=== PATIENT | female | born 1955 | race Caucasian/White ===

== ENCOUNTER 2017-09-11 22:31 | Inpatient (IN) | payer BC, OTHER ==
[~2017-09-11] VITALS: Ht 166.4 cm; Wt 81.0 kg
[~2017-09-11 22:31] MED LIST: BIOTCAP PO; CARA1SUS3 PO; CYCL10TA PO; HUMA100I SC; LEVO100T5 PO; PANT40TA3 PO; VALA500 PO; VENL50TA PO; VITA100T15 PO; insulin pump
[2017-09-11 22:43] VITALS: BP 130/64; PULSE 77; RESP 16; TEMP 98.8; O2SAT 97
[2017-09-12] VITALS (9 sets, daily range): BP systolic 110–142; BP diastolic 59–75; PULSE 54–99; RESP 16–19; TEMP 97.6–98.6; O2SAT 93–99
--- NOTE | 2017-09-12 00:55 | PD ---
HPI Chief Complaint: Neuro Symptoms/ Deficits Time Seen by Provider: 00:41 Travel History International Travel<30 days: No Contact w/Intl Traveler<30days: No Traveled to known affect area: No History of Present Illness HPI The patient is a [id number] female who presents to the emergency department for left facial droop, left-sided facial numbness, and left leg numbness which resolved. The patient's initial symptoms started on Wednesday with left facial numbness, left facial droop, difficulty closing her left eye, and numbness and tingling of the left leg. The numbness in tingling of the left leg has resolved, however, she continues have a left facial droop and difficulty closing the left eye. She denies any difficulty with movement of the forehead. She does have a history of type 1 diabetes with insulin pump, does not know her current settings. She denies any history of CVA, TIA, or Kee 's palsy. She denies any known history of hypertension, hyperlipidemia, or tobacco use. She does have a familial history of TIA/CVA. Symptoms are moderate. PFSH Past Medical History Anxiety: Yes Depression: Yes Cancer: No Cardiovascular Problems: No Diabetes: Yes (TYPE 1) Patient Takes Glucophage: No Diminished Hearing: No Endocrine: Yes (INSULIN PUMP) Gastrointestinal Disorders: Yes (reflux) GERD: Yes Genitourinary: No Hepatitis: No Hiatal Hernia: No Musculoskeletal: Yes (back and neck problems) Neurologic: No Psychiatric: Yes (bi-polar with manic depression) Reproductive: No Respiratory: No Integumentary: Yes (herpes) Thyroid Disease: Yes Menopausal: Yes Ectopic : Yes Dilation and Curettage (D&C): Yes Past Surgical History AICD: No Body Medical Devices: hardware lower jaw Gynecologic Surgery: Yes (total hysterectomy, laparoscopies) Hysterectomy: Yes Joint Replacement: No Oral Surgery: Yes (lower mandible fracture repair) Pacemaker: No Social History Alcohol Use: No Tobacco Use: No Substance Use: No Allergies-Medications (Allergen,Severity, Reaction): Coded Allergies: Sulfa (Sulfonamide Antibiotics) (Unverified Allergy, Severe, hives, ) penicillin G (Unverified Allergy, Severe, Anaphylaxis, 09/12/17) pt states it wasn't anaphylaxis but lips swelled and itched Reported Meds & Prescriptions Reported Meds & Active Scripts Active Carafate Liq (Sucralfate) 1 Gm/10 Ml Susp 1 Gm PO QID on empty stomach Levothyroxine (Levothyroxine Sodium) 100 Mcg Tab 100 Mcg PO DAILY Effexor (Venlafaxine HCl) 50 Mg Tab 50 Mg PO DAILY Pantoprazole (Pantoprazole Sodium) 40 Mg Tab 40 Mg PO DAILY Reported [insulin pump] Review of Systems Except as stated in HPI: all other systems reviewed are Neg HENT: No: Headaches, Lightheadedness Cardiovascular: No: Chest Pain or Discomfort Respiratory: No: Shortness of Breath Gastrointestinal: No: Nausea, Vomiting, Abdominal Pain Musculoskeletal: No: Weakness Neurologic: Positive: Focal Abnormalities, Paresthesia, Sensory Disturbance, No : Headache, Change in Mentation, Slurred Speech Psychiatric: No: Substance Abuse Physical Exam Narrative GENERAL: Awake, alert, pleasant [id number] female who appears her stated age is in no acute respiratory distress. SKIN: Focused skin assessment warm/dry. HEAD: Atraumatic. Normocephalic. EYES: Pupils equal and round. No scleral icterus. No injection or drainage. EOMs are intact. Patient is able to see fingers at a distance of 2 feet without difficulty. Decreased strength with closing the left eyelid. ENT: No nasal bleeding or discharge. Mucous membranes pink and moist. NECK: Trachea midline. No JVD. CARDIOVASCULAR: Regular rate and rhythm. No murmur appreciated. RESPIRATORY: No accessory muscle use. Clear to auscultation. Breath sounds equal bilaterally. GASTROINTESTINAL: Abdomen soft, non-tender, nondistended. No rebound tenderness. MUSCULOSKELETAL: No obvious deformities. No clubbing. No cyanosis. No edema. NEUROLOGICAL: Awake and alert. Left facial droop noted. Difficulty closing the left eye lid. However, patient is able to wrinkle her forehead and it is symmetric. Decreased sensation over the V2 and V3 distribution of the face. No drift of the arms or legs. Sensation is symmetric on the arms and legs bilaterally to soft touch. Finger to nose is normal. Rhlg-xg-[id number] is normal. No dysarthria noted. Oriented 4. PSYCHIATRIC: Appropriate mood and affect; insight and judgment normal. Data Data Last Documented VS Vital Signs Date Time Temp Pulse Resp B/P (MAP) Pulse Ox O2 Delivery O2 Flow Rate FiO2 09/12/17 00:56 72 16 142/75 (97) 96 3/24/18 22:43 98.8 Room Air Orders Orders Electrocardiogram (09/12/17 00:50) Prothrombin Time / Inr (Pt) (09/12/17 00:50) Act Partial Throm Time (Ptt) (09/12/17 00:50) Complete Blood Count With Diff (09/12/17 00:50) Comprehensive Metabolic Panel (09/12/17 00:50) Creatine Kinase (Cpk) (09/12/17 00:50) Troponin I (09/12/17 00:50) Urinalysis - C+S If Indicated (09/12/17 00:50) Ct Brain W/O Iv Contrast(Rout) (09/12/17 00:50) Ecg Monitoring (09/12/17 00:50) Iv Access Insert/Monitor (09/12/17 00:50) Oximetry (09/12/17 00:50) Sodium Chloride 0.9% Flush (Ns Flush) (09/12/17 01:00) Aspirin Chew (Aspirin Chew) (09/12/17 02:45) Admit Order (Ed Use Only) (09/12/17 03:17) Labs Laboratory Tests Test 09/12/17 01:05 White Blood Count 6.5 TH/MM3 Red Blood Count 4.17 MIL/MM3 Hemoglobin 13.2 GM/DL Hematocrit 37.1 % Mean Corpuscular Volume 89.0 FL Mean Corpuscular Hemoglobin 31.6 PG Mean Corpuscular Hemoglobin Concent 35.5 % Red Cell Distribution Width 13.8 % Platelet Count 111 TH/MM3 Mean Platelet Volume 8.9 FL Neutrophils (%) (Auto) 60.4 % Lymphocytes (%) (Auto) 29.9 % Monocytes (%) (Auto) 7.1 % Eosinophils (%) (Auto) 1.8 % Basophils (%) (Auto) 0.8 % Neutrophils # (Auto) 3.9 TH/MM3 Lymphocytes # (Auto) 1.9 TH/MM3 Monocytes # (Auto) 0.5 TH/MM3 Eosinophils # (Auto) 0.1 TH/MM3 Basophils # (Auto) 0.1 TH/MM3 CBC Comment AUTO DIFF Prothrombin Time 10.1 SEC Prothromb Time International Ratio 1.0 RATIO Activated Partial Thromboplast Time 25.3 SEC Blood Urea Nitrogen 17 MG/DL Creatinine 0.79 MG/DL Random Glucose 257 MG/DL Total Protein 7.1 GM/DL Albumin 3.3 GM/DL Calcium Level 8.5 MG/DL Alkaline Phosphatase 94 U/L Aspartate Amino Transf (AST/SGOT) 15 U/L Alanine Aminotransferase (ALT/SGPT) 13 U/L Total Bilirubin 0.5 MG/DL Sodium Level 138 MEQ/L Potassium Level 4.1 MEQ/L Chloride Level 100 MEQ/L Carbon Dioxide Level 33.9 MEQ/L Anion Gap 4 MEQ/L Estimat Glomerular Filtration Rate 74 ML/MIN Total Creatine Kinase 76 U/L Troponin I LESS THAN 0.02 NG/ML MDM Medical Decision Making Medical Screen Exam Complete: Yes Emergency Medical Condition: Yes Medical Record Reviewed: Yes Interpretation(s) CT the brain reveals negative noncontrast head CT Laboratory Tests Test 09/12/17 01:05 White Blood Count 6.5 TH/MM3 Red Blood Count 4.17 MIL/MM3 Hemoglobin 13.2 GM/DL Hematocrit 37.1 % Mean Corpuscular Volume 89.0 FL Mean Corpuscular Hemoglobin 31.6 PG Mean Corpuscular Hemoglobin Concent 35.5 % Red Cell Distribution Width 13.8 % Platelet Count 111 TH/MM3 Mean Platelet Volume 8.9 FL Neutrophils (%) (Auto) 60.4 % Lymphocytes (%) (Auto) 29.9 % Monocytes (%) (Auto) 7.1 % Eosinophils (%) (Auto) 1.8 % Basophils (%) (Auto) 0.8 % Neutrophils # (Auto) 3.9 TH/MM3 Lymphocytes # (Auto) 1.9 TH/MM3 Monocytes # (Auto) 0.5 TH/MM3 Eosinophils # (Auto) 0.1 TH/MM3 Basophils # (Auto) 0.1 TH/MM3 CBC Comment AUTO DIFF Prothrombin Time 10.1 SEC Prothromb Time International Ratio 1.0 RATIO Activated Partial Thromboplast Time 25.3 SEC Blood Urea Nitrogen 17 MG/DL Creatinine 0.79 MG/DL Random Glucose 257 MG/DL Total Protein 7.1 GM/DL Albumin 3.3 GM/DL Calcium Level 8.5 MG/DL Alkaline Phosphatase 94 U/L Aspartate Amino Transf (AST/SGOT) 15 U/L Alanine Aminotransferase (ALT/SGPT) 13 U/L Total Bilirubin 0.5 MG/DL Sodium Level 138 MEQ/L Potassium Level 4.1 MEQ/L Chloride Level 100 MEQ/L Carbon Dioxide Level 33.9 MEQ/L Anion Gap 4 MEQ/L Estimat Glomerular Filtration Rate 74 ML/MIN Total Creatine Kinase 76 U/L Troponin I LESS THAN 0.02 NG/ML EKG reveals normal sinus rhythm with a rate of 66. No ischemic changes or ectopy noted. Differential Diagnosis Differential diagnosis includes CVA, TIA, to cranial hemorrhage, Kee's palsy, Kee's palsy variant, complicated migraine. Narrative Course IV was established, labs are drawn and sent, and the patient was placed on cardiac telemetry monitoring and continuous pulse oximetry monitoring. The patient's differential includes CVA versus Kee's palsy, however, she is able to wrinkle her forehead symmetrically bilaterally and she initially had numbness and tingling of the left leg, I'm inclined to believe this may be CVA/ TIA. Therefore, CT of the brain stat was obtained. CT of the brain is negative. Labs are unremarkable. The patient may have atypical Kee's palsy, however, she can wrinkle her forehead bilaterally versus CVA. She did have numbness and tingling of the left leg initially which has resolved. Therefore, the patient was administered aspirin after CT of brain was negative, will be a 23 hour observation and may benefit from evaluation by neurology and possible MRI. Patient agrees with plan of care and disposition. Physician Communication Physician Communication [facility] were paged for 23 hour observation. I discussed the patient with Dr. Lakhani who agrees with admission. Diagnosis Primary Impression: CVA (cerebral vascular accident) Qualified Codes: I63.9 - Cerebral infarction, unspecified Admitting Information Admitting Physician Requests: Admit Condition: Stable Gene Hunter MD Sep 12, 2017 00:55
[2017-09-12] MEDS ORDERED: SODIUM CHLORIDE 0.9% FLUSH 10 ML FLUSH IVF PRN (01:00)
--- NOTE | 2017-09-12 01:54 | RADRPT ---
EXAM DATE/TIME: 09/12/2017 01:15 [facility] COMPARISON: No previous studies available for comparison. INDICATIONS : Left facial paralysis. RADIATION DOSE: 56.35 CTDIvol (mGy) MEDICAL HISTORY : Unable to obtain. SURGICAL HISTORY : Unable to obtain. ENCOUNTER: Initial ACUITY: 1 day PAIN SCALE: 0/10 LOCATION: cranial TECHNIQUE: Multiple contiguous axial images were obtained of the head. Using automated exposure control and adj ustment of the mA and/or kV according to patient size, radiation dose was kept as low as reasonably a chievable to obtain optimal diagnostic quality images. DICOM format image data is available electro nically for review and comparison. FINDINGS: CEREBRUM: The ventricles are normal for age. No evidence of midline shift, mass lesion, hemorrhage or acute in farction. No extra-axial fluid collections are seen. POSTERIOR FOSSA: The cerebellum and brainstem are intact. The 4th ventricle is midline. The cerebellopontine angle i s unremarkable. EXTRACRANIAL: The visualized portion of the orbits is intact. SKULL: The calvaria is intact. No evidence of skull fracture. CONCLUSION: Negative noncontrast head CT Chadd Price MD on September 12, 2017 at 1:34 Board Certified Radiologist. This report was verified electronically.
[2017-09-12 02:23] LABS: ALBUMIN 3.3 GM/DL (3.4-5.0); ALKALINE PHOSPHATASE 94 U/L (45-117); ALT (GPT) 13 U/L (10-53); AST (GOT) 15 U/L (15-37); BICARBONATE 33.9 MEQ/L (21.0-32.0); BLOOD UREA NITROGEN 17 MG/DL (7-18); CALCIUM 8.5 MG/DL (8.5-10.1); CHLORIDE 100 MEQ/L (98-107); CREATININE 0.79 MG/DL (0.50-1.00); GLOMERULAR FILTRATION RATE 74 ML/MIN (>89); GLUCOSE,RANDOM 257 MG/DL (74-106); SODIUM (NA) 138 MEQ/L (136-145); TOTAL BILIRUBIN ADULT 0.5 MG/DL (0.2-1.0); TOTAL PROTEIN 7.1 GM/DL (6.4-8.2); TROPONIN I LESS THAN 0.02 NG/ML (0.02-0.05)
[2017-09-12 02:26] LABS: AUTOMATED NEUTROPHIL # 3.9 TH/MM3 (1.8-7.7); BASOPHIL # 0.1 TH/MM3 (0-0.2); BASOPHIL % 0.8 % (0.0-2.0); EOSINOPHIL # 0.1 TH/MM3 (0-0.4); EOSINOPHIL % 1.8 % (0.0-4.0); LYMPH % 29.9 % (9.0-44.0); LYMPHOCYTE # 1.9 TH/MM3 (1.0-4.8); MEAN CORPUSCULAR HEMOGLOBIN 31.6 PG (27.0-34.0); MEAN CORPUSCULAR HGB CONC 35.5 % (32.0-36.0); MEAN PLATELET VOLUME 8.9 FL (7.0-11.0); MONO % 7.1 % (0.0-8.0); MONOCYTE # 0.5 TH/MM3 (0-0.9); NEUT % 60.4 % (16.0-70.0); RED BLOOD COUNT 4.17 MIL/MM3 (4.00-5.30); RED CELL DISTRIBUTION WIDTH 13.8 % (11.6-17.2)
[2017-09-12 02:30] LABS: PROTHROMBIN TIME - PATIENT 10.1 SEC (9.8-11.6)
[2017-09-12] MEDS ORDERED: ASPIRIN 81 MG CHEW TAB CHEW ONE (02:45)
[2017-09-12] MEDS ORDERED: GLUCAGON 1 MG/ML VIAL OTHER PRN (03:30)
[2017-09-12] MEDS ORDERED: DEXTROSE 50% IN WATER 50 ML VIAL(D50) IV PUSH PRN (03:30)
[2017-09-12] MEDS ORDERED: SODIUM CHLORIDE 0.9% FLUSH 10 ML FLUSH IV FLUSH PRN (03:30)
[2017-09-12] MEDS ORDERED: ENALAPRILAT 1.25 MG/ML VIAL IV PUSH PRN (03:30)
[2017-09-12] MEDS ORDERED: ARTIFICIAL TEARS OPTH SOLN 15 ML BTL LEFT EYE PRN (04:00)
--- NOTE | 2017-09-12 04:13 | HHI.HP ---
[facility] Unknown Admission Diagnosis CVA, left facial droop, left leg numbness Diagnoses: (1) CVA (cerebral vascular accident) Diagnosis: Principal (2) Dehydration Diagnosis: Principal (3) DM (diabetes mellitus) Diagnosis: Principal Travel History International Travel<30 Days: No Contact w/Intl Traveler <30 Da: No Traveled to Known Affected Are: No History of Present Illness This is a 62-year-old female with a PMH of DM, Anxiety, Depression and Herpetic Neuralgia who presented to the ER with complaints of left-sided facial droop in addition to left-sided numbness and weakness. States left-sided weakness/ numbness started approx 2 days ago, but did not seek medical attention at that time. Today pt reports right leg pain typical of her previous herpetic neuralgia and took 5 tablets of Acyclovir w/ some improvement. Few hours later went to drink through a straw but wasn't able to, and noticed left facial droop at that time. Also notes she is unable to close left eye. States Daughter is a physician in another state who urged her to come to the ER. No h/o similar symptoms. No recent viral illness or sick contacts. On arrival, BP 130/64, HR 77, O2 sat 97% RA, Afebrile. CBC unremarkable except for platelets 111, previously 106 on 04/12/2014. Chemistry unremarkable except for GFR 74. Troponin negative. INR 1.0. CT Head with no acute findings. Review of Systems Except as stated in HPI: all other systems reviewed are Neg ROS: 14 point review of systems otherwise negative. Past Family Social History Past Medical History PMH: DM, Anxiety, Depression and Herpetic Neuralgia Past Surgical History PAST SURGICAL HISTORY: Jaw Surgery, Hysterectomy Allergies: Coded Allergies: Sulfa (Sulfonamide Antibiotics) (Unverified Allergy, Severe, hives, ) penicillin G (Unverified Allergy, Severe, Anaphylaxis, 09/12/17) pt states it wasn't anaphylaxis but lips swelled and itched Family History PAST FAMILY HISTORY: Reviewed. No h/o DM or CAD Social History PAST SOCIAL HISTORY: Negative for alcohol, tobacco or drugs. Physical Exam Vital Signs Vital Signs Date Time Temp Pulse Resp B/P (MAP) Pulse Ox O2 Delivery O2 Flow Rate FiO2 09/12/17 00:56 72 16 142/75 (97) 96 09/11/17 22:43 98.8 77 16 130/64 (86) 97 Room Air Physical Exam PE: GENERAL: Pleasant middle-aged white female in no acute distress. HEENT: PERRLA, EOMI. No scleral icterus or conjunctival pallor. Left-sided facial droop. Bandage over left eye, unable to close eye completely. CARDIOVASCULAR: Regular rate and rhythm. No obvious murmurs to auscultation. No chest tenderness to palpation. RESPIRATORY: No obvious rhonchi or wheezing. Clear to auscultation. Breath sounds equal bilaterally. GASTROINTESTINAL: Abdomen soft, non-tender, nondistended. BS normal. MUSCULOSKELETAL: Extremities without clubbing, cyanosis, or edema. No obvious deformities. NEUROLOGICAL: Awake, alert and oriented x4. No focal neurologic deficits. Moving both upper and lower extremities spontaneously. Laboratory Laboratory Tests Test 09/12/17 01:05 White Blood Count 6.5 Red Blood Count 4.17 Hemoglobin 13.2 Hematocrit 37.1 Mean Corpuscular Volume 89.0 Mean Corpuscular Hemoglobin 31.6 Mean Corpuscular Hemoglobin Concent 35.5 Red Cell Distribution Width 13.8 Platelet Count 111 Mean Platelet Volume 8.9 Neutrophils (%) (Auto) 60.4 Lymphocytes (%) (Auto) 29.9 Monocytes (%) (Auto) 7.1 Eosinophils (%) (Auto) 1.8 Basophils (%) (Auto) 0.8 Neutrophils # (Auto) 3.9 Lymphocytes # (Auto) 1.9 Monocytes # (Auto) 0.5 Eosinophils # (Auto) 0.1 Basophils # (Auto) 0.1 CBC Comment AUTO DIFF Prothrombin Time 10.1 Prothromb Time International Ratio 1.0 Activated Partial Thromboplast Time 25.3 Blood Urea Nitrogen 17 Creatinine 0.79 Random Glucose 257 Total Protein 7.1 Albumin 3.3 Calcium Level 8.5 Alkaline Phosphatase 94 Aspartate Amino Transf (AST/SGOT) 15 Alanine Aminotransferase (ALT/SGPT) 13 Total Bilirubin 0.5 Sodium Level 138 Potassium Level 4.1 Chloride Level 100 Carbon Dioxide Level 33.9 Anion Gap 4 Estimat Glomerular Filtration Rate 74 Total Creatine Kinase 76 Troponin I LESS THAN 0.02 Result Diagram: 09/12/1710409/12/17104 Caprini VTE Risk Assessment Caprini VTE Risk Assessment: No/Low Risk (score <= 1) Caprini Risk Assessment Model Point Value = 1 Point Value = 2 Point Value = 3 Point Value = 5 Age 41-60 Minor surgery BMI > 25 kg/m2 Swollen legs Varicose veins or History of unexplained or recurrent spontaneous Oral contraceptives or hormone replacement Sepsis (< 1 month) Serious lung disease, including pneumonia (< 1 month) Abnormal pulmonary function Acute myocardial infarction Congestive heart failure (< 1 month) History of inflammatory bowel disease Medical patient at bed rest Age 61-74 Arthroscopic surgery Major open surgery (> 45 min) Laparoscopic surgery (> 45 min) Malignancy Confined to bed (> 72 hours) Immobilizing plaster cast Central venous access Age >= 75 History of VTE Family history of VTE Factor V Leiden Prothrombin [id number] Lupus anticoagulant Anticardiolipin antibodies Elevated serum homocysteine Heparin-induced thrombocytopenia Other congenital or acquired thrombophilia Stroke (< 1 month) Elective arthroplasty Hip, pelvis, or leg fracture Acute spinal cord injury (< 1 month) Prophylaxis Regimen Total Risk Factor Score Risk Level Prophylaxis Regimen 0-1 Low Early ambulation 2 Moderate Order ONE of the following: *Sequential Compression Device (SCD) *Heparin 5000 units SQ BID 3-4 Higher Order ONE of the following medications: *Heparin 5000 units SQ TID *Enoxaparin/Lovenox 40 mg SQ daily (WT < 150 kg, CrCl > 30 mL/min) *Enoxaparin/Lovenox 30 mg SQ daily (WT < 150 kg, CrCl > 10-29 mL/min) *Enoxaparin/Lovenox 30 mg SQ BID (WT < 150 kg, CrCl > 30 mL/min) AND/OR *Sequential Compression Device (SCD) 5 or more Highest Order ONE of the following medications: *Heparin 5000 units SQ TID (Preferred with Epidurals) *Enoxaparin/Lovenox 40 mg SQ daily (WT < 150 kg, CrCl > 30 mL/min) *Enoxaparin/Lovenox 30 mg SQ daily (WT < 150 kg, CrCl > 10-29 mL/min) *Enoxaparin/Lovenox 30 mg SQ BID (WT < 150 kg, CrCl > 30 mL/min) AND *Sequential Compression Device (SCD) Assessment and Plan Problem List: (1) CVA (cerebral vascular accident) ICD Code: I63.9 - Cerebral infarction, unspecified Status: Acute (2) Dehydration ICD Code: E86.0 - Dehydration (3) DM (diabetes mellitus) ICD Code: E11.9 - Type 2 diabetes mellitus without complications Assessment and Plan A/P: 1. CVA: vs Kee's Palsy. Acute onset of left-sided numbness/weakness x2 days w/ left-facial droop today and difficulty closing left eye. CT Head w/ no acute findings, images reviewed by me. Concern for CVA in light of associated weakness/numbness of lower extremity and forehead sparing, admit for further evaluation. Telemetry, Neuro Checks, NPO, IVF, check MRI/MRA to eval for CVA, check Echo to eval for possible thromboembolic event. Artificial Tears prn. Consult Neurology for further eval/recommendations. ASA, Statin. Check Hgb A1c , Lipid Profile. PT/Speech for eval/tx. 2. Dehydration: GFR 74, IVF for hydration, check U/a, repeat labs in am. 3. DM: Has Insulin Pump, will turn off. Start Sliding Scale w/ Accu-Cheks. 4. DVT Prophylaxis: SCD/Teds. 5. Social work for d/c planning as needed. 6. Case discussed w/ ER physician at length, labs/records/imaging reviewed by me. Physician Certification 2 Midnight Certification Type: Admission for Inpatient Services Order for Inpatient Services The services are ordered in accordance with Medicare regulations or non- Medicare payer requirements, as applicable. In the case of services not specified as inpatient-only, they are appropriately provided as inpatient services in accordance with the 2-midnight benchmark. Estimated LOS (days): 2 days is the estimated time the patient will need to remain in the hospital, assuming treatment plan goals are met and no additional complications. Post-Hospital Plan: Not yet determined Problem Qualifiers (1) CVA (cerebral vascular accident): Qualified Codes: I63.9 - Cerebral infarction, unspecified Carolee Lakhani MD Sep 12, 2017 04:13
[2017-09-12 04:56] LABS: HEMOGLOBIN 12.6 GM/DL (11.6-15.3); WHITE BLOOD COUNT 5.4 TH/MM3 (4.0-11.0)
[2017-09-12 04:57] LABS: PLATELET COUNT 183 TH/MM3 (150-450)
[2017-09-12 05:12] LABS: BACTERIA, URINE RARE /hpf; BILIRUBIN, URINE NEG (NEG); BLOOD, URINE NEG (NEG); GLUCOSE,URINE 1000 mg/dL (NEG); KETONE, URINE NEG (NEG); NITRITE,URINE NEG (NEG); PH, URINE 7.5 (5.0-8.5); SQUAMOUS EPITHELIAL CELL URINE 2 /hpf (0-5); URINE COLOR LIGHT-YELLOW (YELLW/STRAW); URINE LEUKOCYTE ESTERASE NEG (NEG)
[2017-09-12] MEDS: SODIUM CHLOR 0.9% 1000 ML INJ 1,000 ML IV SCH (05:44)
[2017-09-12] MEDS: INSULIN ASPART SUPPLEMENTAL SCALE SQ SCH ×4 (08:00→20:37)
[2017-09-12] MEDS: ASPIRIN 81 MG CHEW TAB PO SCH (10:28)
--- NOTE | 2017-09-12 13:39 | MB ---
cc: Jj Farmer MD DATE: 09/12/2017 HISTORY OF PRESENT ILLNESS: She is a 62-year-old woman with a history of left facial weakness that evolved 2 days ago. She went to work and other people also noticed that during the following day, symptoms persisted and then she came to the hospital yesterday. History of diabetes and depression. History of some herpetic neuralgia that apparently affects her buttock region intermittently over the years. The patient felt somewhat funny with her left foot or leg yesterday, but it seemed to be a minor event. She has no history of stroke, TIAs, seizures. NEUROLOGIC EXAMINATION: Showed an alert, pleasant woman. Mentation normal. Ocular movements full. Pupils equal and reactive. Visual soria full. She has some mild peripheral left facial weakness with a mild Kee's phenomena. Tongue and palate moves well. Speech is minimally dysarthric. She has good strength with all 4 limbs. Pssydy-qe-grms testing normal, and reflexes were absent throughout. Plantar responses are flexor. IMAGING STUDIES: CT brain negative. 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 She admits some symptoms in her inner ear, but I did not see any edema, erythema or suggestion of shingles there. She is already scheduled for an MRI brain and suspect the study will be negative for any acute process and if so, she could be discharged home on baby aspirin and otherwise general medical care. Overall, the Kee's palsy appears to be relatively mild and suspect it will improve within the next few weeks. If there is any significant findings on the MRI, we will be happy to reevaluate the patient. Thank you for asking us to assist in her care. MD ANGELIA Nelson/ABY , 01:21 PM , 01:38 PM
--- NOTE | 2017-09-12 13:59 | RADRPT ---
EXAM DATE/TIME: 09/12/2017 13:28 [facility] COMPARISON: No previous studies available for comparison. INDICATIONS : CVA. MEDICAL HISTORY : Diabetes mellitus type 2. SURGICAL HISTORY : Hysterectomy. ENCOUNTER: Initial ACUITY: 1 day PAIN SCORE: 0/10 LOCATION: cranial TECHNIQUE: Multiplanar, multisequence MRI of the brain was performed without contrast. FINDINGS: CEREBRUM: The ventricles are normal for age. No evidence of midline shift, mass lesion, hemorrhage or acute in farction. No extraaxial fluid collections are seen. The pituitary gland and suprasellar cistern are normal in configuration. WHITE MATTER: No significant signal abnormalities are seen in the white matter. POSTERIOR FOSSA: The cerebellum and brainstem are intact. The 4th ventricle is midline. The cerebellopontine angle is unremarkable. The cerebellar tonsils are normal in position. DIFFUSION IMAGING: No focal areas of restricted diffusion are seen. No evidence of acute infarction. EXTRACRANIAL: The visualized portions of the orbits and paranasal sinuses are unremarkable. CONCLUSION: No acute disease. Victorino Whitman MD on September 12, 2017 at 13:55 Board Certified Radiologist. This report was verified electronically.
--- NOTE | 2017-09-12 14:04 | RADRPT ---
EXAM DATE/TIME: 09/12/2017 13:28 [facility] COMPARISON: CT BRAIN W/O CONTRAST, September 12, 2017, 1:15. MRI BRAIN W/O CONTRAST, September 12, 2017, 13:28. INDICATIONS : CVA. MEDICAL HISTORY : Diabetes mellitus type 2. SURGICAL HISTORY : Hysterectomy. ENCOUNTER: Initial ACUITY: 1 day PAIN SCORE: 0/10 LOCATION: cranial Please note a normal MRA of the brain does not entirely exclude the possibility of a small aneurysm, nor the possibility of distal intracranial vessel disease. TECHNIQUE: 3D time of flight MRA was performed. Source images, multiplanar STS MIP, and 3D volume MIP reconstru ctions were reviewed. FINDINGS: There is excellent visualization of the major intracranial arteries out to the second-order branch ve ssels. The right posterior cerebral artery arises from the right internal carotid artery. This is a normal variant. There is a questionable 3 mm area of minimal enhancement seen adjacent to the superio r aspect of the proximal M1 segment of the right middle cerebral artery. An aneurysm could have this appearance. There is no evidence for vessel truncation or stenosis, and no evidence for vascular malf ormation. CONCLUSION: 1. Questionable small aneurysm seen as an area of increased signal just superior to the proximal righ t middle cerebral artery. This area could be better delineated with a CTA of the head. 2. Normal variant of the right posterior cervical artery arising from the right internal carotid ubaldo ry. Victorino Whitman MD on September 12, 2017 at 13:56 Board Certified Radiologist. This report was verified electronically.
--- NOTE | 2017-09-12 19:39 | EKG ---
Date Performed: 09/12/2017 Time Performed: 01:03:24 PTAGE: 62 years EKG: Sinus rhythm Since the previous tracing, no significant change noted NORMAL ECG PREVIOUS TRACING : 04/12/2014 12.45 DOCTOR: Zulema Celestin Interpretating Date/Time 09/12/2017 19:38:30
[2017-09-12] MEDS: SODIUM CHLORIDE 0.9% FLUSH 10 ML FLUSH IV FLUSH SCH (21:00)
[2017-09-12] MEDS ORDERED: ATORVASTATIN 10 MG TAB PO SCH (21:00)
[2017-09-13] MEDS ORDERED: IBUPROFEN 400 MG TAB PO PRN (01:45)
[2017-09-13 03:10] VITALS: BP 105/56; PULSE 62; RESP 17; TEMP 97.9; O2SAT 94
[2017-09-13 03:20] LABS: AUTOMATED NEUTROPHIL # 5.2 TH/MM3 (1.8-7.7); BASOPHIL % 0.6 % (0.0-2.0); EOSINOPHIL # 0.1 TH/MM3 (0-0.4); EOSINOPHIL % 1.3 % (0.0-4.0); HEMATOCRIT 39.8 % (35.0-46.0); HEMOGLOBIN 13.7 GM/DL (11.6-15.3); LYMPH % 18.9 % (9.0-44.0); LYMPHOCYTE # 1.4 TH/MM3 (1.0-4.8); MEAN CELL VOLUME 87.9 FL (80.0-100.0); MEAN CORPUSCULAR HEMOGLOBIN 30.2 PG (27.0-34.0); MEAN CORPUSCULAR HGB CONC 34.3 % (32.0-36.0); MEAN PLATELET VOLUME 9.2 FL (7.0-11.0); MONO % 6.9 % (0.0-8.0); MONOCYTE # 0.5 TH/MM3 (0-0.9); NEUT % 72.3 % (16.0-70.0); RED BLOOD COUNT 4.53 MIL/MM3 (4.00-5.30); RED CELL DISTRIBUTION WIDTH 13.8 % (11.6-17.2); WHITE BLOOD COUNT 7.2 TH/MM3 (4.0-11.0)
[2017-09-13 03:41] LABS: ALBUMIN 3.2 GM/DL (3.4-5.0); ALT (GPT) 10 U/L (10-53); AST (GOT) 13 U/L (15-37); BICARBONATE 31.5 MEQ/L (21.0-32.0); BLOOD UREA NITROGEN 13 MG/DL (7-18); CALCIUM 8.5 MG/DL (8.5-10.1); CHLORIDE 105 MEQ/L (98-107); CHOLESTEROL 220 MG/DL (120-200); CREATININE 0.69 MG/DL (0.50-1.00); GLOMERULAR FILTRATION RATE 87 ML/MIN (>89); GLUCOSE,RANDOM 116 MG/DL (74-106); SODIUM (NA) 142 MEQ/L (136-145); TRIGLYCERIDES 74 MG/DL (42-150)
[2017-09-13 03:46] LABS: ALKALINE PHOSPHATASE 71 U/L (45-117); CHOLESTEROL/ HDL RATIO 2.98 RATIO; HDL CHOLESTEROL 73.7 MG/DL (40.0-60.0); LDL CHOLESTEROL 132 MG/DL (0-99); TOTAL BILIRUBIN ADULT 0.4 MG/DL (0.2-1.0); TOTAL PROTEIN 6.8 GM/DL (6.4-8.2)
[2017-09-13] MEDS: SODIUM CHLOR 0.9% 1000 ML INJ 1,000 ML IV SCH ×2 (07:59→10:28)
[2017-09-13 08:00] VITALS: BP 142/75; PULSE 74; RESP 18; TEMP 98.2; O2SAT 96
[2017-09-13] MEDS: INSULIN ASPART SUPPLEMENTAL SCALE SQ SCH ×3 (08:00→16:11)
[2017-09-13 08:23] LABS: PLATELET COUNT 198 TH/MM3 (150-450)
[2017-09-13 08:41] VITALS: O2SAT 95
[2017-09-13] MEDS: SODIUM CHLORIDE 0.9% FLUSH 10 ML FLUSH IV FLUSH SCH ×2 (09:00→10:25)
--- NOTE | 2017-09-13 09:00 | HHI.FPPN ---
Subjective Remarks Patient states she was unhappy last night because she has not been on her anti- depressant, is very tearful on interview. States she knew she would crash with the amount of insulin she received for a blood glucose of above 200. Wants to use her own insulin pump because she feels that the insulin here is different and made her blood sugar drop. Is otherwise stable, no other complaints. (Luiza Calle MD R1) Objective Vitals Vital Signs Date Time Temp Pulse Resp B/P (MAP) Pulse Ox O2 Delivery O2 Flow Rate FiO2 09/13/17 08:41 95 09/13/17 03:10 97.9 62 17 105/56 (72) 94 09/12/17 23:40 98.1 68 17 110/61 (77) 94 09/12/17 22:38 21 09/12/17 18:57 98.4 99 19 130/70 (90) 95 09/12/17 15:42 98.6 60 19 131/66 (87) 97 09/12/17 11:30 98.2 65 18 121/70 (87) 93 09/12/17 10:17 99 21 I/O 09/12/17 09/12/17 09/12/17 09/13/17 09/13/17 09/13/17 07:00 15:00 23:00 07:00 15:00 23:00 Intake Total 0 ml 0 ml 480 ml Output Total 650 ml Balance -650 ml 0 ml 480 ml Intake Oral 0 ml 0 ml 480 ml Output Urine Total 650 ml # Voids 2 4 # Bowel Movements 0 0 0 (Luiza Calle MD R1) Result Diagram: 09/13/17 0613 09/13/17 0234 Objective Remarks O. CONSTITUTIONAL/GEN: Tearful in room, laying quietly in bed. Freind at bedisde. EYES: conjunctiva normal, PERRLA, EOMI. ENT: Mouth and pharynx normal. NECK: thyroid midline, carotids symmetrical. LUNGS: clear A-P, respiratory effort is normal. CARDIOVASCULAR: RR without murmur or gallop. No significant edema. GI/ABD: soft without masses, without organomegaly. NEURO: No new focal deficits. Left sided facial weakness slightly improved since yesterday, patient states she is better able to close her left eye. 5/5 motor strength bilaterally. Reflexes 1+ in lower extremities. SKIN: color normal, no rashes noted. HEME/LYMPH: no bruising, petechia or significant adenopathy PSYCH/MENTAL STATUS: Alert and oriented x 3. Patient is tearful on exam. States she likes when things are explained to her. Has not been receiving her anti-depressant. (Luiza Calle MD R1) A/P Assessment and Plan Patient is a 62-year-old female with a PMH of DM, Anxiety, Depression and Herpetic Neuralgia admitted for left-sided facial droop in addition to left- sided numbness and weakness. Neurology consulted, patient underwent stroke work- up. MRA Started on IVF hydration and NPO for testing. PT/Speech consulted for evaluation. Discharge Planning D/C after CTA imaging of brain and neck (Luiza Calle MD R1) Attending Attestation Patient seen and examined. Case reviewed and discussed with the resident team. Agree with plan of care as discussed with me and documented in the resident note. Contrast studies showed no issues with the carotids and also no sign of aneurysm. Her exam is improved slightly with decrease facial droop and able to close her eye. 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 She did elect to take prednisone on dc. 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 Normal motor strength (2) Left-sided weakness ICD Codes: R53.1 - Weakness Status: Resolved Plan: Diff: stress response v migraine v TIA Patient had 5/5 strength today, slightly weak on yesterdays exam, but not to the extent there is acute concern. See above (3) Depression ICD Codes: F32.9 - Major depressive disorder, single episode, unspecified Plan: Con't venlafaxine 50 mg daily (4) Hypothyroidism ICD Codes: E03.9 - Hypothyroidism, unspecified Plan: Con't home levothyroxine 100 mcg daily (5) GERD (gastroesophageal reflux disease) ICD Codes: K21.9 - Gastro-esophageal reflux disease without esophagitis Plan: Con't pantoprazole (6) Herpes ICD Codes: B00.9 - Herpesviral infection, unspecified Plan: Takes acyclovir 400 BID for herpes outbreaks (7) DM (diabetes mellitus) ICD Codes: E11.9 - Type 2 diabetes mellitus without complications Plan: Con't insulin pump, allow patient to manage herself for today. Instructed she can call us if assistance needed (8) Dehydration ICD Codes: E86.0 - Dehydration Status: Resolved Plan: s/p IV hydration, improved (9) FEN Plan: Fluids: PO Electrolytes: prn Nutrition: diabetic diet DVT prophy: ASA 81 mg daily for now, SCDs, encourage patient to ambulate (Luiza Calle MD R1) Problem Qualifiers (1) DM (diabetes mellitus): Qualified Codes: E10.8 - Type 1 diabetes mellitus with unspecified complications Luiza Calle MD R1 Sep 13, 2017 09:00 Mercy Langley MD Sep 13, 2017 19:06
[2017-09-13] MEDS ORDERED: VENLAFAXINE HCL 25 MG TAB PO SCH (10:00)
[2017-09-13] MEDS: PANTOPRAZOLE SOD 40 MG DELAYED RELEASE TAB PO SCH ×2 (10:27→10:30)
[2017-09-13] MEDS: ASPIRIN 81 MG CHEW TAB PO SCH (10:27)
[2017-09-13] MEDS ORDERED: LEVOTHYROXINE SODIUM 100 MCG TAB PO SCH (11:00)
[2017-09-13] MEDS ORDERED: cloNIDine HCL 0.1 MG TAB PO PRN (11:00)
[2017-09-13 12:00] VITALS: BP 133/78; PULSE 78; RESP 17; TEMP 98.5; O2SAT 93
[2017-09-13] MEDS ORDERED: ACETIC ACID/HYDROCORTISONE OTIC SOLN 10 ML BTL LEFT EAR SCH (13:00)
[2017-09-13] MEDS ORDERED: ACYCLOVIR 200 MG CAP PO SCH (13:00)
[2017-09-13] MEDS ORDERED: IOHEXOL 350 MG/ML 10 ML VIAL (for RAD DIAG) IVCONTRAST ONE (14:14)
--- NOTE | 2017-09-13 15:04 | RADRPT ---
EXAM DATE/TIME: 09/13/2017 13:51 [facility] COMPARISON: No previous studies available for comparison. INDICATIONS : Left sided facial droop. IV CONTRAST: 95 cc Omnipaque 350 (iohexol) IV ; Cumulative dose for multiple exams. RADIATION DOSE: 28.01 CTDIvol (mGy) ; Combined studies MEDICAL HISTORY : Gastroesophageal reflux disease. Diabetes mellitus type 1. SURGICAL HISTORY : Hysterectomy. ENCOUNTER: Initial ACUITY: 1 day PAIN SCALE: 0/10 LOCATION: cranial TECHNIQUE: Volumetric scanning was performed using a multi-row detector CT scanner. The data was post processed with a variety of visualization algorithms including full volume maximum intensity projection, multi -planar sliding thin slab reformation, curved planar reformation, and surface rendering techniques. Using automated exposure control and adjustment of the mA and/or kV according to patient size, radiat ion dose was kept as low as reasonably achievable to obtain optimal diagnostic quality images. DICO M format image data is available electronically for review and comparison. FINDINGS: There is excellent visualization of the major intracranial arteries out to the second-order branch ve ssels. There is no evidence for aneurysm, vessel truncation or stenosis, and no evidence for vascula r malformation. The right posterior cerebral artery arises in fashion is a variant of normal. CONCLUSION: No acute [place] of [place] vascular findings. Victorino Munguia MD on September 13, 2017 at 14:57 Board Certified Radiologist. This report was verified electronically.
--- NOTE | 2017-09-13 15:06 | RADRPT ---
EXAM DATE/TIME: 09/13/2017 13:51 [facility] COMPARISON: No previous studies available for comparison. INDICATIONS : Left sided facial droop. IV CONTRAST: 95 cc Omnipaque 350 (iohexol) IV ; Cumulative dose for multiple exams. RADIATION DOSE: 28.01 CTDIvol (mGy) ; Combined studies MEDICAL HISTORY : Gastroesophageal reflux disease. Diabetes mellitus type 1. SURGICAL HISTORY : Hysterectomy. ENCOUNTER: Initial ACUITY: 1 day PAIN SCALE: 0/10 LOCATION: neck Elevated flow velocities and ICA/CCA ratios have been found to correlate with increased degrees of vessel stenosis, calculated as percentage of diameter relative to a normal segment of distal ICA/CCA. TECHNIQUE: Volumetric scanning was performed using a multirow detector CT scanner. The data was post processed with a variety of visualization algorithms including full-volume maximum intensity projection, multip lanar sliding thin-slab reformation, curved-planar reformation, and surface-rendering techniques. Us ing automated exposure control and adjustment of the mA and/or kV according to patient size, radiatio n dose was kept as low as reasonably achievable to obtain optimal diagnostic quality images. DICOM f ormat image data is available electronically for review and comparison. FINDINGS: AORTIC ARCH: Truncus arch anatomy. Widely patent arch vessels. RIGHT CAROTID: The common carotid artery is intact. The carotid bulb has a normal configuration without ulceration o r narrowing. The internal carotid artery lumen is smooth without stenosis. The external carotid ubaldo ry is intact. LEFT CAROTID: The common carotid artery is intact. The carotid bulb has a normal configuration without ulceration or narrowing. The internal carotid artery lumen is smooth without stenosis. The external carotid ar kristine is intact. VERTEBRALS: The vertebral arteries are patent bilaterally, left side dominant. No stenotic lesions are seen. CONCLUSION: Normal study Victorino Munguia MD on September 13, 2017 at 15:01 Board Certified Radiologist. This report was verified electronically.
[2017-09-13 16:00] VITALS: BP 131/68; PULSE 84; RESP 18; TEMP 98; O2SAT 94
--- NOTE | 2017-09-13 16:48 | HHI.DCPOC ---
Discharge Care Plan Diagnosis: (1) Kee's palsy Goals to Promote Your Health * To prevent worsening of your condition and complications * To maintain your health at the optimal level Directions to Meet Your Goals Take your medications as prescribed Follow your dietary instruction Follow activity as directed Keep your appointments as scheduled Take your immunizations and boosters as scheduled If your symptoms worsen call your PCP, if no PCP go to Urgent Care Center or Emergency Room Smoking is Dangerous to Your Health. Avoid second hand smoke Call the 24-hour hour crisis hotline for domestic abuse at Sheryl Weaver MD, R3 Sep 13, 2017 16:48
[2017-09-13] MEDS ORDERED: ACETIC ACID LEFT EAR (16:57)
[2017-09-13] MEDS ORDERED: HYDROCORTISONE LEFT EAR (16:57)
[2017-09-13] MEDS ORDERED: POLY99.0 LEFT EYE (16:57)
[2017-09-13] MEDS ORDERED: ACYC200C66 PO (16:57)
[2017-09-13] MEDS ORDERED: ASPI81 PO (16:58)
[2017-09-13] MEDS ORDERED: PRED10 PO (17:10)
[2017-09-13 17:12] VITALS: O2SAT 94
[2017-09-15 18:25] LABS: HEMOGLOBIN A1C 10.3 % (4.3-6.0)
== END 2017-09-13 18:20 | disposition home or self-care (01) | DRG 74 ==
LOC: NEPE 22:31 → NEDA 09-12 03:19 → N06B 09-12 04:37
PROVIDERS: ADMIT Family Medicine; ATTEND Family Medicine
DX: G51.0 Bell's palsy (principal); B02.29 Other postherpetic nervous system involvement; E10.9 Type 1 diabetes mellitus without complications; Z79.4 Long term (current) use of insulin; Z96.41 Presence of insulin pump (external) (internal); E86.0 Dehydration; E78.5 Hyperlipidemia, unspecified; E03.9 Hypothyroidism, unspecified; K21.9 Gastro-esophageal reflux disease without esophagitis; F41.9 Anxiety disorder, unspecified; F32.9 Major depressive disorder, single episode, unspecified
CPT/HCPCS: 70450; 70496; 70498; 70544; 70551; 80053; 80061; 81001; 82550; 82948; 83036; 84484; 85025; 85610; 85730; 87077; 87086; 87186; 93005; J1815; J7030; Q9967